=== PATIENT | female | born 2000 | race Caucasian/White ===

== ENCOUNTER → 2021-02-05 14:21 | Outpatient (CLI) | payer OTHER, SELFPAY ==
--- NOTE | ~2021-02-05 | CT_ITS ---
EXAMINATION: CT abdomen pelvis w con DATE: 02/05/2021 14:47 INDICATION: Left lower quadrant pain and nausea TECHNIQUE: Computed tomography (CT) of the abdomen and pelvis was performed with 100 cc Omnipaque 350 intravenous contrast. The dose-length product was 1158.55 mGy-cm. Automated exposure control and ite rative reconstruction technique were employed. COMPARISON: None. FINDINGS: Lung bases are unremarkable. Heart size normal. The liver, spleen, pancreas, adrenal glands and kidneys are unremarkable. Gallbladder is present. Nonobstructive bowel gas pattern. No evidence for diverticulitis. No free air or free fluid. Normal appendix. The liver, spleen, pancreas, adrenal glands and kidneys are unremarkable. No acute osseous abnormalit y. IMPRESSION: 1. No acute abdominal abnormality. Reviewed, dictated and finalized at location A.
== END ==
PROVIDERS: PCP Internal Medicine; Visit Provider Nurse Practitioner Adult Health
DX: R10.32 Left lower quadrant pain (principal); R11.0 Nausea
CPT/HCPCS: 74177; Q9967

== ENCOUNTER 2021-08-04 11:21 | Outpatient (CLI) | payer BC, SELFPAY ==
[2021-08-04 19:33] LABS: Hematocrit 40.7 % (37.0-47.0); Hemoglobin 13.7 g/dL (12.0-15.0); Mean Corpuscular HGB Conc 33.7 g/dl (32-36); Mean Corpuscular Hemoglobin 30.1 pg (26-34); Mean Corpuscular Volume 89.5 fl (80-100); Mean Platelet Volume 10.2 fl (7.4-10.4); Platelet Count Result 353 k/mm3 (150-375); Red Blood Count 4.55 M/mm3 (4.2-5.4); White Blood Count 8.5 K/mm3 (4.5-10.0)
[2021-08-04 19:41] LABS: Alanine Aminotransferase 22 U/L (4-35); Albumin Level 4.2 g/dL (3.5-5.1); Alkaline Phosphatase 74 U/L (38-126); Anion Gap 7 mmol/L (8-16); Aspartate Amino Transferase 21 U/L (14-36); Bilirubin,Total 0.3 mg/dL (0.2-1.3); Blood Urea Nitrogen 14 mg/dL (7-17); CRP 1.2 mg/dL (<1.0); Calcium 9.7 mg/dL (8.4-10.2); Carbon Dioxide 27 mmol/L (22-30); Chloride 103 mmol/L (98-107); Cholesterol 152 mg/dL (0-200); Estimated Glomerular Filt Rate > 60; Glucose 98 mg/dL (65-110); HDL Direct 37 mg/dL; Potassium 4.7 mmol/L (3.4-5.0); Sodium 137 mmol/L (137-145); Triglycerides 91 mg/dL (<150)
[2021-08-04 19:50] LABS: LDL Cholesterol Direct 104 mg/dL
[2021-08-04 20:20] LABS: Erythrocyte Sedimentation Rate 13 mm/hr (0-20)
[2021-08-04 21:12] LABS: Free T4 Free Thyroxine 1.78 ng/mL (0.78-2.19); Vitamin D 25 Hydroxy 46.6 ng/mL
[2021-08-04 21:25] LABS: Thyroid Stimulating Hormone Reflex 0.714 uIU/mL (0.465-4.68)
== END 2021-08-04 11:22 | disposition home or self-care (01) ==
LOC: ANHBWCLAB 11:23
PROVIDERS: PCP Family Medicine; Visit Provider Family Medicine
DX: E03.9 Hypothyroidism, unspecified (principal); R53.83 Other fatigue; Z00.00 Encounter for general adult medical examination without abnormal findings
CPT/HCPCS: 36415; 80053; 80061; 82306; 84439; 84443; 84481; 85027; 85652; 86140

== ENCOUNTER 2021-12-18 09:52 | Emergency (ER) | payer BC, SELFPAY ==
--- NOTE | 2021-12-18 09:55 | ED.URI ---
HPI - URI/Sore Throat General Chief Complaint: Upper Respiratory Infection Stated Complaint: Sinus Congestion Time Seen by Provider: 12/18/21 09:56 Source: patient and RN notes reviewed History of Present Illness HPI Narrative: Patient is a 21-year-old female who presents the urgent care with complaints of stuffy nose, rhinorrhea, mild cough, postnasal drainage and scratchy throat. Patient states that most of her symptoms started on Tuesday and she did have a negative COVID test at home. Patient states she is feeling much better today after taking some DayQuil and NyQuil. States that she called off work and mainly needs an excuse from work today . Patient denies of any fever, chills, nausea or vomiting. No other acute complaints. No acute distress noted. Patient aware of the plan of care. Some parts of this dictation were generated by voice recognition software and may contain typographical and/or grammatical inaccuracies. Related Data Home Medications Medication Instructions Recorded Confirmed buspirone 10 mg tablet 10 mg PO TID 08/04/21 08/04/21 fluoxetine 40 mg capsule 40 mg PO DAILY 08/04/21 08/04/21 levothyroxine 88 mcg capsule 88 mcg PO DAILY 08/04/21 08/04/21 Allergies Allergy/AdvReac Type Severity Reaction Status Date / Time No Known Drug Allergies Allergy Unknown Verified 12/18/21 10:03 Review of Systems Review of Systems: CONSTITUTIONAL: Denies fever, chills, or sweats. EYES: Denies visual changes, redness, or discharge. ENT: Reports of rhinorrhea, nasal congestion, scratchy throat CARDIOVASCULAR: Denies chest pain, palpitations, or edema. RESPIRATORY: Reports a mild cough without dyspnea GASTROINTESTINAL: Denies abdominal pain, nausea, vomiting, or diarrhea. GENITOURINARY: Denies dysuria or hematuria. SKIN: Denies rash or itching. MUSCULOSKELETAL: Denies back pain, joint pain, or myalgia. NEUROLOGIC: Denies headache, numbness, or weakness. All other systems reviewed are negative, except as documented in HPI. PMFSH Comments At the time of my signature, I reviewed and agree with the nursing past medical, surgical, social, and family history. There is no relevant family history pertinent to the patient complaint. Exam Narrative: GENERAL: This is a well-nourished, well-developed patient, in no apparent distress. HEAD: normocephalic, atraumatic. EYES: PERRL. Sclera clear/white. Vision is grossly intact. EARS: External ears normal, auditory canals clear and without drainage, TMs normal without perforation. Hearing grossly intact. NOSE: External nose normal with no obvious nasal discharge. Moderate bilateral erythemic nares with clear to yellow rhinorrhea THROAT: Mucous membranes moist, moderate postnasal drainage. Hoarse NECK: Neck supple, non-tender without lymphadenopathy CARDIOVASCULAR: Regular rate and rhythm without murmurs, gallops, or rubs. RESPIRATORY: Clear to auscultation. Breath sounds equal bilaterally. No wheezes, rales, or rhonchi. SKIN: warm, intact with no suspicious lesions or rash, good texture and turgor. NEURO: awake, alert, and oriented to person, place and time. There were no obvious focal neurologic abnormalities. EXTREMITIES: No clubbing, cyanosis, or edema. Course Course Level of Care: Express Care Visit Vital Signs Vital signs: Vital Signs Temperature 98.2 F 12/18/21 10:00 Pulse Rate 77 12/18/21 10:00 Respiratory Rate 14 12/18/21 10:00 Blood Pressure 148/96 H 12/18/21 10:00 Pulse Oximetry 100 12/18/21 10:00 Oxygen Delivery Room Air 12/18/21 10:00 Temperature 98.2 F 12/18/21 10:03 Pulse Rate 77 12/18/21 10:03 Respiratory Rate 14 12/18/21 10:03 Blood Pressure 148/96 H 12/18/21 10:03 Pulse Oximetry 100 12/18/21 10:03 Oxygen Delivery Room Air 12/18/21 10:03 Reviewed-patient is informed that they may have pre-hypertension or hypertension based on a blood pressure reading in the department. I recommend the patient call the primary ca
[2021-12-18 10:00] VITALS: BP 148/96; PULSE 77; RESP 14; TEMP 36.8; O2SAT 100
[2021-12-18 10:03] VITALS: BP 148/96; PULSE 77; RESP 14; TEMP 36.8; O2SAT 100
== END 2021-12-18 10:13 | disposition home or self-care (01) ==
PROVIDERS: Emergency Provider Nurse Practitioner Family; PCP Family Medicine
DX: J32.9 Chronic sinusitis, unspecified (principal); E03.9 Hypothyroidism, unspecified; F41.9 Anxiety disorder, unspecified; F32.A Depression, unspecified
CPT/HCPCS: 99211; G0463

== ENCOUNTER 2022-04-06 16:49 | Emergency (ER) | payer BC, SELFPAY ==
[2022-04-06 17:00] VITALS: BP 139/72; PULSE 99; RESP 16; TEMP 36.8; O2SAT 98
--- NOTE | 2022-04-06 19:28 | ED.ABDPAIN ---
HPI - Abdominal Pain General Chief Complaint: Abdominal Pain Stated Complaint: abdo pain nausea Source: patient Mode of arrival: ambulatory Limitations: no limitations History of Present Illness HPI narrative: Patient presents for evaluation of intermittent abdominal pain over last 3 days. She states the pain is primarily on the right side, lasting 20 minutes in duration, and occurring approximately every 20 minutes. She does not provide me with a descriptive quarter numerical rating the pain. She has experienced nausea, vomiting, constipation. Last bowel movement was yesterday, solid consistency, without the presence of blood or mucus in the stool, substantial in size. Normal bowel pattern is once every other day. No fever, chills, vaginal bleeding, discharge, urinary symptoms. She currently has a Nexplanon. She states since being here her pain has resolved. Related Data Home Medications Medication Instructions Recorded Confirmed fluoxetine 40 mg capsule 20 mg PO DAILY 08/04/21 04/06/22 levothyroxine 88 mcg tablet 88 mcg PO DAILY 04/06/22 04/06/22 Allergies Allergy/AdvReac Type Severity Reaction Status Date / Time No Known Drug Allergies Allergy Unknown Verified 04/06/22 17:32 Review of Systems Review of Systems: CONSTITUTIONAL: Denies fever, chills, or sweats. EYES: Denies visual changes, redness, or discharge. ENT: Denies rhinorrhea, congestion, sore throat, or otalgia. CARDIOVASCULAR: Denies chest pain, palpitations, or edema. RESPIRATORY: Denies cough or dyspnea. GASTROINTESTINAL: Reports recent abdominal pain, none currently. Reports episodes of nausea, vomiting, constipation or last few days. GENITOURINARY: Denies dysuria or hematuria. SKIN: Denies rash or itching. MUSCULOSKELETAL: Denies back pain, joint pain, or myalgia. NEUROLOGIC: Denies headache, numbness, dizziness, or weakness. PSYCHIATRIC: Denies anxiety or depression. [facility] Past Medical History Medical History Anxiety Depression Hypothyroidism Surgical History Surgical History No pertinent past surgical history Family History Family History Mother Family history non-contributory Social History Social History Alcohol intake: never Substance use: current Substance use type: marijuana Gender identity (if verbalized by the patient): Female Spiritual care concerns: No Exam Narrative: GENERAL: Well-appearing, well-nourished, and in no acute distress. Pleasant, smiling throughout exam HEAD: Normocephalic, atraumatic. EYES: PERRLA and EOMI. ENT: Nares clear, no rhinorrhea or epistaxis. Mucous membranes moist. Oropharynx without tonsillar hypertrophy exudate or other lesions. Bilateral TMs pearly cristobal nonbulging NECK: Supple. No adenopathy or masses. No carotid bruits or JVD CHEST: Clear to auscultation. No respiratory distress. No wheezes rales or rhonchi HEART: Regular rate and rhythm. No murmur heard. Normal peripheral pulses. ABDOMEN: Soft, no abdominal tenderness. Abdomen is nondistended, normal active bowel sounds. EXTREMITIES: Normal range of motion. No edema. SKIN: Warm, dry, no rash. NEURO: No focal deficits. Alert and oriented x3. PSYCH: Normal mood and affect. Course Course Emergency Course: This is a 21-year-old female who presented for evaluation of abdominal pain nausea, vomiting, constipation. She has no urinary symptoms were obtained urinalysis. She states no chance of and has Nexplanon. She is currently asymptomatic. I did offer to transfer to the ER for labs and potential imaging. She declined. I think this is reasonable as she is asymptomatic the present time. She has also had a substantial bowel movement within the last 24 hours and is consistent wi
== END 2022-04-06 18:27 | disposition home or self-care (01) ==
PROVIDERS: Emergency Provider Nurse Practitioner; PCP Family Medicine
DX: R10.9 Unspecified abdominal pain (principal); R11.2 Nausea with vomiting, unspecified; F12.90 Cannabis use, unspecified, uncomplicated; E03.9 Hypothyroidism, unspecified; F41.9 Anxiety disorder, unspecified; F32.A Depression, unspecified
CPT/HCPCS: 99213; G0463

== ENCOUNTER 2022-06-07 12:16 | Outpatient (CLI) | payer BC, SELFPAY ==
[2022-06-07 21:33] LABS: Hematocrit 44.1 % (37.0-47.0); Hemoglobin 14.1 g/dL (12.0-15.0); Mean Corpuscular Hemoglobin 30.1 pg (26-34); Mean Corpuscular Volume 94.2 fl (80-100); Mean Platelet Volume 10.4 fl (7.4-10.4); Platelet Count Result 378 k/mm3 (150-375); Red Blood Count 4.68 M/mm3 (4.2-5.4); Red Cell Distribution Width 12.1 % (11.5-14.5); White Blood Count 9.3 K/mm3 (4.5-10.0)
[2022-06-07 21:38] LABS: Alanine Aminotransferase 19 U/L (6-35); Albumin Level 4.6 g/dL (3.5-5.1); Alkaline Phosphatase 73 U/L (38-126); Anion Gap 9 mmol/L (8-16); Aspartate Amino Transferase 49 U/L (14-36); Bilirubin,Total 0.3 mg/dL (0.2-1.3); Blood Urea Nitrogen 13 mg/dL (7-17); Calcium 9.7 mg/dL (8.4-10.2); Carbon Dioxide 27 mmol/L (22-30); Chloride 103 mmol/L (98-107); Estimated Glomerular Filt Rate > 60; Glucose 83 mg/dL (65-110); Potassium 4.4 mmol/L (3.4-5.0); Sodium 139 mmol/L (137-145)
== END 2022-06-07 12:17 | disposition home or self-care (01) ==
PROVIDERS: PCP Family Medicine; Visit Provider Family Medicine
DX: K58.9 Irritable bowel syndrome, unspecified (principal); F41.9 Anxiety disorder, unspecified; E53.8 Deficiency of other specified B group vitamins; F32.A Depression, unspecified
CPT/HCPCS: 36415; 80053; 82607; 84443; 85027

== ENCOUNTER 2022-06-24 09:31 | Outpatient (CLI) | payer BC, SELFPAY ==
[2022-06-24 20:25] LABS: Alanine Aminotransferase 23 U/L (6-35); Alkaline Phosphatase 67 U/L (38-126); Aspartate Amino Transferase 35 U/L (14-36); Bilirubin,Total 0.4 mg/dL (0.2-1.3)
[2022-06-24 20:33] LABS: Hepatitis B Surface Antigen Negative (Negative)
[2022-06-24 20:39] LABS: HAV RESULT Negative (Negative); Hepatitis B Core IgM Result Negative (Negative)
[2022-06-24 20:50] LABS: Hepatitis C Virus Antibody Negative (Negative)
== END 2022-06-24 09:32 | disposition home or self-care (01) ==
LOC: ANHBWCLAB 09:32
PROVIDERS: PCP Family Medicine; Visit Provider Family Medicine
DX: R74.01 Elevation of levels of liver transaminase levels (principal)
CPT/HCPCS: 36415; 80074; 80076

== ENCOUNTER 2023-01-03 11:06 | Outpatient (CLI) | payer BC, SELFPAY ==
[2023-01-03 18:34] LABS: Anion Gap 6 mmol/L (8-16); Blood Urea Nitrogen 15 mg/dL (7-17); Calcium 9.4 mg/dL (8.4-10.2); Carbon Dioxide 30 mmol/L (22-30); Chloride 103 mmol/L (98-107); Estimated Glomerular Filt Rate > 60; Glucose 94 mg/dL (65-110); Potassium 4.2 mmol/L (3.4-5.0); Sodium 139 mmol/L (137-145)
[2023-01-03 18:57] LABS: Hemoglobin A1C 5.4 % (<5.7)
[2023-01-03 19:03] LABS: Thyroid Stimulating Hormone 0.883 uIU/mL (0.465-4.680)
[2023-01-03 19:20] LABS: Amorphous Sediment Urine Present; Appearance Urine Turbid (Clear); Bacteria Urine 1+ /hpf; Bilirubin Urine Negative (Negative); Blood Urine 1+ (Negative); Color Urine Yellow (Yellow); Glucose Urine UA Negative (Negative); Ketones Urine Negative (Negative); Leukocyte Esterase Ur 1+ LEU/UL (NEGATIVE); Nitrate Urine Negative (Negative); Non Pathogenic Casts 0-2; Protein Urine Negative (Negative); RBC Urine 0-2 /hpf (0-2); Specific Grav Ur 1.017 (1.001-1.035); Squamous Epithelial Cell Urine Few /hpf (Few); Urobilinogen Urine 0.2 mg/dL (<2.0); WBC Urine 0-5 /hpf (0-3); pH Urine 7.5 (5.0-9.0)
[2023-01-03 19:21] LABS: Add Urine Microscopic? YES
== END 2023-01-03 11:07 | disposition home or self-care (01) ==
PROVIDERS: PCP Family Medicine; Visit Provider Family Medicine
DX: R30.0 Dysuria (principal); E03.9 Hypothyroidism, unspecified; E66.9 Obesity, unspecified
CPT/HCPCS: 36415; 80048; 81001; 83036; 84443; 87086

== ENCOUNTER 2023-08-08 10:43 | Outpatient (CLI) | payer BC, SELFPAY ==
[2023-08-08 18:47] LABS: Hematocrit 44.9 % (37.0-47.0); Hemoglobin 14.2 g/dL (12.0-15.0); Mean Corpuscular HGB Conc 31.6 g/dl (32-36); Mean Corpuscular Hemoglobin 29.3 pg (26-34); Mean Corpuscular Volume 92.8 fl (80-100); Mean Platelet Volume 9.9 fl (7.4-10.4); Platelet Count Result 368 k/mm3 (150-375); Red Blood Count 4.84 M/mm3 (4.2-5.4); Red Cell Distribution Width 12.5 % (11.5-14.5); White Blood Count 8.2 K/mm3 (4.5-10.0)
[2023-08-08 18:56] LABS: Alanine Aminotransferase 20 U/L (6-35); Albumin Level 4.3 g/dL (3.5-5.1); Alkaline Phosphatase 77 U/L (38-126); Anion Gap 7 mmol/L (8-16); Aspartate Amino Transferase 38 U/L (14-36); Bilirubin,Total 0.5 mg/dL (0.2-1.3); Blood Urea Nitrogen 14 mg/dL (7-17); Calcium 10.1 mg/dL (8.4-10.2); Carbon Dioxide 27 mmol/L (22-30); Chloride 103 mmol/L (98-107); Cholesterol 189 mg/dL (0-200); Estimated Glomerular Filt Rate > 60; Glucose 97 mg/dL (65-110); HDL Direct 39 mg/dL; Potassium 4.1 mmol/L (3.4-5.0); Sodium 137 mmol/L (137-145); Triglycerides 146 mg/dL (<150)
[2023-08-08 19:07] LABS: LDL Cholesterol Direct 126 mg/dL
== END 2023-08-08 10:44 | disposition home or self-care (01) ==
LOC: ANHBWCLAB 10:46
PROVIDERS: PCP Family Medicine; Visit Provider Family Medicine
DX: Z00.00 Encounter for general adult medical examination without abnormal findings (principal); M25.572 Pain in left ankle and joints of left foot; E03.9 Hypothyroidism, unspecified; F32.A Depression, unspecified; F41.9 Anxiety disorder, unspecified; K58.9 Irritable bowel syndrome, unspecified; R53.83 Other fatigue; E66.9 Obesity, unspecified; R74.01 Elevation of levels of liver transaminase levels
CPT/HCPCS: 36415; 80053; 80061; 84443; 85027